=== PATIENT | female | born 1985 | race Hispanic/Latino ===

== ENCOUNTER 2021-06-24 12:37 | Emergency (ER) | payer BC ==
[~2021-06-24] VITALS: Ht 157.5 cm; Wt 90.7 kg
[2021-06-24] MEDS ORDERED: SODIUM CHLORIDE 0.9% 1000ML 1,000 ML IV STA (12:52)
[2021-06-24] MEDS ORDERED: ONDANSETRON HCL INJ 2MG/ML 2ML 2 MG/ML VIAL IV PRN (13:00)
[2021-06-24] MEDS ORDERED: FAMOTIDINE 20 MG/2 ML VIAL IV ONE ×2 (13:15→13:23)
[2021-06-24 13:16] LABS: BASOPHILS # (AUTO) 0.1 (0.0-0.1); BASOPHILS % 0.4 % (0.0-1.0); EOSINOPHILS # (AUTO) 0.1 (0.0-0.4); EOSINOPHILS % 0.9 % (0.0-6.0); HEMATOCRIT 41.1 % (34.2-44.1); HEMOGLOBIN 13.8 g/dL (12.0-16.0); LYMPHOCYTES # (AUTO) 0.9 (1.0-3.2); LYMPHOCYTES % 7.5 % (18.0-39.1); MEAN CORPUSCULAR HEMOGLOBIN 31.5 pg (28-32); MEAN CORPUSCULAR HGB CONC 33.6 g/dL (31-35); MEAN CORPUSCULAR VOLUME 93.8 fL (81-99); MONOCYTES # (AUTO) 0.7 (0.2-0.8); MONOCYTES % 5.6 % (4.4-11.3); NEUTROPHILS % 85.3 % (38.7-80.0); PLATELET COUNT 352 x10e3/uL (140-360); RED BLOOD COUNT 4.38 x10e6/uL (3.6-5.1); RED CELL DISTRIBUTION WIDTH 11.9 % (11.7-14.4)
[2021-06-24 13:30] LABS: CLARITY,URINE CLEAR (CLEAR); COLOR,URINE YELLOW (YELLOW); KETONES,URINE NEGATIVE (NEGATIVE); LEUKOCYTE ESTERASE ,URINE NEGATIVE (NEGATIVE); NITRITE,URINE NEGATIVE (NEGATIVE); PROTEIN,URINE DIPSTICK NEGATIVE (NEGATIVE); URINE UROBILINOGEN 0.2 mg/dL (0.2 - 1)
[2021-06-24 13:34] LABS: ALANINE AMINOTRANSFERASE 18 IU/L (0-55); ALBUMIN 3.8 g/dL (3.5-5.0); ALBUMIN/GLOBULIN RATIO 1.1 (0.8-2.0); ALKALINE PHOSPHATASE 88 IU/L (40-150); ANION GAP 13.6 mmol/L (8-16); BACTERIA,URINE MODERATE /HPF; BLOOD UREA NITROGEN 10 mg/dL (7-26); BUN/CREATININE RATIO 16 (6-25); CARBON DIOXIDE 21 mmol/L (22-29); CHLORIDE 107 mmol/L (98-107); CREATININE, SERUM 0.63 mg/dL (0.57-1.11); EPITHELIAL CELLS,URINE FEW /LPF; EST GLOMERULAR FILTRATION RATE 109 ML/MIN (60-); GLUCOSE 107 mg/dL (74-118); LIPASE 11 U/L (8-78); POTASSIUM 3.6 mmol/L (3.5-5.1); RBC,URINE 0-5 /HPF (0-5); SODIUM 138 mmol/L (136-145); WBC,URINE (MAN) 0-5 /HPF (0-5)
[2021-06-24 13:43] LABS: HCG,QUANTITATIVE < 1.20 mIU/mL (0-10)
[2021-06-24] MEDS ORDERED: IOPAMIDOL 370 MG/ML 200 ML INFUS..BTL INJ ONE (13:49)
[2021-06-24] MEDS ORDERED: SODIUM CHLORIDE 0.9% 50ML 50 ML ONE (13:49)
[2021-06-24] MEDS ORDERED: KETOROLAC TROMETHAMINE 30 MG/ML VIAL IV NR (14:00)
[2021-06-24] MEDS ORDERED: CEFDINIR300 MG PO (16:37)
[2021-06-24] MEDS ORDERED: ONDANSETRON ODT4 MG PO (16:38)
[2021-06-24 16:50] VITALS: BP 5/2
== END 2021-06-24 16:55 | disposition home or self-care (01) ==
LOC: ER 12:40
DX: R10.9 Unspecified abdominal pain (principal); N39.0 Urinary tract infection, site not specified; R11.2 Nausea with vomiting, unspecified; R19.7 Diarrhea, unspecified
CPT/HCPCS: 36415; 74174; 80053; 81001; 83690; 84702; 85025; 99284; J1885; J2405; J7030; Q9967